=== PATIENT | female | born 1940 | race Caucasian/White ===

== ENCOUNTER 2017-07-16 09:14 | Observation (INO) | payer MEDICARE, BC ==
[2017-07-16] MEDS ORDERED: Ondansetron 4 MG/2 ML SDV IVPUSH ONE ×2 (09:55→12:01)
[2017-07-16] MEDS ORDERED: Sodium Chloride 0.9% 1,000 ML IV SCH ×2 (10:00→11:00)
[2017-07-16] MEDS ORDERED: HYDROmorphone 0.5 MG/0.5 ML Syringe IVPUSH ONE ×2 (10:02→10:26)
--- NOTE | 2017-07-16 10:04 | EDM.PDOC ---
ED HPI GENERAL MEDICAL PROBLEM - General Chief Complaint: Gastrointestinal Problem Stated Complaint: NAUSEA Time Seen by Provider: 07/16/17 09:58 Source of Information: Reports: Patient History Limitations: Reports: No Limitations - History of Present Illness INITIAL COMMENTS - FREE TEXT/NARRATIVE: pt arrived with a history of being ill since monday. She has pain in her upper abdoman. pt did have urinary frequncy since last evening. She has not had a fever. Pt has been having very severe pain durng the nite and now. Onset: Gradual, Other ( started Monday nite. ) Duration: Day(s):, Getting Worse Location: Reports: Abdomen Associated Symptoms: Reports: Loss of Appetite, Nausea/Vomiting, Other ( severe abdomanal pain. ) Abdominal Pain Score (Numeric/FACES): 9 - Related Data Allergies Allergy/AdvReac Type Severity Reaction Status Date / Time No Known Allergies Allergy Verified 07/16/17 09:42 Home Meds: Home Meds Aspirin 81 mg PO ONETIME 05/22/13 [History] Calcium Carbonate/Vitamin D3 [Os-Eduardo 500+D Chewable] 1 tab PO DAILY 05/22/13 [ History] Gluc [place]/Msm/Magnesium/Vit C [Glucosamine Complex-MSM] 1 tab PO DAILY 05/22/13 [ History] Lisinopril 10 mg PO DAILY 05/22/13 [History] Multivitamin/Iron/Folic Acid [Centrum Complete Multivit] 1 tab PO DAILY [History] Simvastatin [Zocor] 40 mg PO BEDTIME 05/22/13 [History] Metoprolol Succinate 50 mg PO DAILY 05/20/15 [History] Past Medical History Cardiovascular History: Reports: High Cholesterol, Hypertension [employer] History: Reports: , Spontaneous Musculoskeletal History: Reports: Arthritis Endocrine/Metabolic History: Reports: Diabetes, Type II Other Endocrine/Metabolic History: diet control - Infectious Disease History Infectious Disease History: Reports: Chicken Pox, Measles - Past Surgical History Oncologic Surgical History: Reports: Biopsy of Breast Social & Family History - Tobacco Use Smoking Status *Q: Former Smoker Used Tobacco, but Quit: Yes Month Tobacco Last Used: 30 years Second Hand Smoke Exposure: No - Caffeine Use Caffeine Use: Reports: Coffee - Alcohol Use Days Per Week of Alcohol Use: 1 Number of Drinks Per Day: 2 Total Drinks Per Week: 2 - Recreational Drug Use Recreational Drug Use: No ED ROS GENERAL - Review of Systems Review Of Systems: See Below Constitutional: Reports: Decreased Appetite HEENT: Reports: No Symptoms Respiratory: Reports: No Symptoms Cardiovascular: Reports: No Symptoms Endocrine: Reports: No Symptoms GI/Abdominal: Reports: Abdominal Pain, Decreased Appetite, Nausea, Vomiting : Reports: No Symptoms ED EXAM, GI/ABD - Physical Exam Exam: See Below Text/Narrative:: Pt arrived with acute abdomanal pain in the epigastric area. She has been very uncomfortable for most of the nite and she was rating her pain at a 10 on arrival. Exam Limited By: No Limitations General Appearance: Alert, Anxious, Severe Distress Ears: Normal TMs Nose: Normal Inspection Throat/Mouth: Normal Inspection Head: Atraumatic Neck: Normal Inspection Respiratory/Chest: No Respiratory Distress Cardiovascular: Regular Rate, Rhythm GI/Abdominal Exam: Tender, Other ( Pt had tenderness in the epigastric and the rt upper abdoman. She did not have back pain. She wa still wretching and doing alot of vomiting. ) (Female) Exam: Deferred Rectal (Female) Exam: Deferred, Other ( She states she had a stool that did look orange. ) Back Exam: Normal Inspection Extremities: Normal Inspection Neurological: Alert, Oriented, Normal Cognition Course - Vital Signs Last Recorded V/S: Last Vital Signs Temp 36.0 C 07/16/17 09:40 Pulse 75 07/16/17 12:17 Resp 16 07/16/17 12:17 BP 149/56 H 07/16/17 12:17 Pulse Ox 93 L 07/16/17 12:17 - Orders/Labs/Meds Orders: Active Orders 24 hr Category Date Time Status EKG Documentation Completion [RC] ASDIRECTED Care 07/16/17 10:27 Active Abdomen Ltd [US] Stat Exams 07/16/17 10:26 Taken Abdomen Pelvis w Cont [CT] Stat Exams 07/16/17 11:31 Taken Sodium Chloride 0.9% [Normal Saline] 1,000 ml Med 07/16/17 10:00 Active IV ASDIRECTED Sodium Chloride 0.9% [Normal Saline] 1,000 ml Med 07/16/17 11:00 Active IV ASDIRECTED EKG 12 Lead [EK] Routine Ther 07/16/17 10:27 Ordered Medication Orders Sodium Chloride (Normal Saline) 1,000 mls @ 999 mls/hr IV ASDIRECTED CARMEN Last Admin: 07/16/17 10:08 Dose: 999 mls/hr Sodium Chloride (Normal Saline) 1,000 mls @ 999 mls/hr IV ASDIRECTED [facility] Last Admin: 07/16/17 12:14 Dose: 999 mls/hr Labs: Laboratory Tests 07/16/17 07/16/17 07/16/17 Range/Units 10:08 10:08 10:08 WBC 7.6 (4.5-11.0) K/uL RBC 5.35 (3.30-5.50) M/uL Hgb 16.8 H (12.0-15.0) g/dL Hct 49.2 H (36.0-48.0) % MCV 92 (80-98) fL MCH 31 (27-31) pg MCHC 34 (32-36) % Plt Count 253 (150-400) K/uL Neut % (Auto) 65 (36-66) % Lymph % (Auto) 22 L (24-44) % [place] % (Auto) 12 H (2-6) % Eos % (Auto) 1 L (2-4) % Baso % (Auto) 0 (0-1) % Sodium 139 L (140-148) mmol/L Potassium 4.0 (3.6-5.2) mmol/L Chloride 101 (100-108) mmol/L Carbon Dioxide 25 (21-32) mmol/L Anion Gap 17.0 H (5.0-14.0) mmol/L BUN 14 (7-18) mg/dL Creatinine 0.9 (0.6-1.0) mg/dL Est Cr Clr Drug Dosing 47.85 mL/min Estimated GFR (MDRD) > 60 (>60) Glucose 130 H (74-106) mg/dL Calcium 9.6 (8.5-10.1) mg/dL Total Bilirubin 1.1 H D (0.2-1.0) mg/dL AST 33 (15-37) U/L ALT 30 (12-78) U/L Alkaline Phosphatase 68 (46-116) U/L Total Protein 7.8 (6.4-8.2) g/dL Albumin 4.0 (3.4-5.0) g/dL Globulin 3.8 H (2.3-3.5) g/dL Albumin/Globulin Ratio 1.1 L (1.2-2.2) Amylase (25-115) U/L Lipase 306 (73-393) U/L 07/16/17 Range/Units 10:08 WBC (4.5-11.0) K/uL RBC (3.30-5.50) M/uL Hgb (12.0-15.0) g/dL Hct (36.0-48.0) % MCV (80-98) fL MCH (27-31) pg MCHC (32-36) % Plt Count (150-400) K/uL Neut % (Auto) (36-66) % Lymph % (Auto) (24-44) % [place] % (Auto) (2-6) % Eos % (Auto) (2-4) % Baso % (Auto) (0-1) % Sodium (140-148) mmol/L Potassium (3.6-5.2) mmol/L Chloride (100-108) mmol/L Carbon Dioxide (21-32) mmol/L Anion Gap (5.0-14.0) mmol/L BUN (7-18) mg/dL Creatinine (0.6-1.0) mg/dL Est Cr Clr Drug Dosing mL/min Estimated GFR (MDRD) (>60) Glucose (74-106) mg/dL Calcium (8.5-10.1) mg/dL Total Bilirubin (0.2-1.0) mg/dL AST (15-37) U/L ALT (12-78) U/L Alkaline Phosphatase (46-116) U/L Total Protein (6.4-8.2) g/dL Albumin (3.4-5.0) g/dL Globulin (2.3-3.5) g/dL Albumin/Globulin Ratio (1.2-2.2) Amylase 54 (25-115) U/L Lipase (73-393) U/L Meds: Medications Generic Name Dose Route Start Last Admin Trade Name Freq PRN Reason Stop Dose Admin Sodium Chloride 1,000 mls @ 999 mls/hr 07/16/17 10:00 07/16/17 10:08 Normal Saline IV 999 mls/hr ASDIRECTED CARMEN Administration Sodium Chloride 1,000 mls @ 999 mls/hr 07/16/17 11:00 07/16/17 12:14 Normal Saline IV 999 mls/hr ASDIRECTED CARMEN Administration Discontinued Medications Generic Name Dose Route Start Last Admin Trade Name Emiliano PRN Reason Stop Dose Admin Hydromorphone HCl 0.5 mg 07/16/17 10:02 07/16/17 10:13 Dilaudid IVPUSH 07/16/17 10:03 0.5 mg ONETIME ONE Administration Hydromorphone HCl 0.5 mg 07/16/17 10:26 07/16/17 10:32 Dilaudid IVPUSH 07/16/17 10:27 0.5 mg ONETIME ONE Administration Sodium Chloride 74 mls @ 3.4 mls/sec 07/16/17 11:41 07/16/17 11:52 Normal Saline IV 07/16/17 11:42 3.4 mls/sec ASDIRECTED STA Administration Iopamidol 100 ml 07/16/17 11:41 07/16/17 11:52 Isovue-300 (61%) IV 07/16/17 11:42 100 ml . DIRECTED STA Administration Ondansetron HCl 4 mg 07/16/17 09:55 07/16/17 10:09 Zofran IVPUSH 07/16/17 09:56 4 mg ONETIME ONE Administration Ondansetron HCl 4 mg 07/16/17 12:01 07/16/17 12:15 Zofran IVPUSH 07/16/17 12:02 4 mg ONETIME ONE Administration - Re-Assessments/Exams Free Text/Narrative Re-Assessment/Exam: 07/16/17 13:39 pt arrived with severe abdomanal pain. She was wretching and vomiting alot. She was given several doses of dilaudid and zoforan. She is feeling better at this time. 07/16/17 13:40 pt has normal labs. Her us did not show stones or gb thickening. Her cat scan of the abdoman was neg for acute findings. Departure - Departure Time of Disposition: 13:41 Disposition: Admitted As Inpatient 67 Condition: Fair Clinical Impression: Abdominal pain, Gastric irritation - Discharge Information Referrals: Kayla Suh PA [Primary Care Provider] - Forms: ED Department Discharge Care Plan Goals: admit to Dr Wynn. - My Orders Last 24 Hours: My Active Orders 07/16/17 10:00 Sodium Chloride 0.9% [Normal Saline] 1,000 ml IV ASDIRECTED 07/16/17 10:26 Abdomen Ltd [US] Stat 07/16/17 10:27 EKG Documentation Completion [RC] ASDIRECTED EKG 12 Lead [EK] Routine 07/16/17 11:00 Sodium Chloride 0.9% [Normal Saline] 1,000 ml IV ASDIRECTED 07/16/17 11:31 Abdomen Pelvis w Cont [CT] Stat - Assessment/Plan Last 24 Hours: My Active Orders 07/16/17 10:00 Sodium Chloride 0.9% [Normal Saline] 1,000 ml IV ASDIRECTED 07/16/17 10:26 Abdomen Ltd [US] Stat 07/16/17 10:27 EKG Documentation Completion [RC] ASDIRECTED EKG 12 Lead [EK] Routine 07/16/17 11:00 Sodium Chloride 0.9% [Normal Saline] 1,000 ml IV ASDIRECTED 07/16/17 11:31 Abdomen Pelvis w Cont [CT] Stat
[2017-07-16] MEDS ORDERED: Iopamidol 612 MG/ML 100 ML Bottle IV STA (11:41)
[2017-07-16] MEDS ORDERED: Pantoprazole 40 MG Vial IVPUSH ONE (13:47)
--- NOTE | 2017-07-16 15:04 | PCM.HP ---
H&P History of Present Illness - General Date of Service: 07/16/17 Admit Problem/Dx: Admission Diagnosis/Problem Admission Diagnosis/Problem Epigastric pain Source of Information: Patient, Family, Provider History Limitations: Reports: No Limitations - History of Present Illness Initial Comments - Free Text/Narative: Ligia presents to the emergency room today with 24 hours of nausea with vomiting and severe epigastric pain. She reports some nausea and dry heaves about 36 hours before presentation. These resolved and she felt well yesterday morning. After returning home from work around noon she developed nausea followed by vomiting. She also had severe achy epigastric abdominal pain that started around this time. She tried to take some ibuprofen but vomited it up before it had a chance to absorb and work. No obvious triggers to make the pain worse it just seems to come and go on its own. She is not aware of any fevers. She does not have an appetite. No diarrhea. No obvious sick contacts. She does not feel short of breath. No change in bladder habits. She does note that she's lost a few pounds over the past few months and has not been trying to do so. No night sweats or significant fatigue. Workup in the emergency room has been reassuring with fairly normal lab work and a normal CT of the abdomen and pelvis as well as a normal right upper quadrant ultrasound. Given the severe nature of her pain on arrival admission for observation was recommended. Abdominal Pain Score (Numeric/FACES): 9 - Related Data Allergies/Adverse Reactions: Allergies Allergy/AdvReac Type Severity Reaction Status Date / Time No Known Allergies Allergy Verified 07/16/17 16:26 Home Medications: Home Meds Aspirin 81 mg PO ONETIME 05/22/13 [History] Calcium Carbonate/Vitamin D3 [Os-Eduardo 500+D Chewable] 1 tab PO DAILY 05/22/13 [ History] Gluc [place]/Msm/Magnesium/Vit C [Glucosamine Complex-MSM] 1 tab PO DAILY 05/22/13 [ History] Lisinopril 10 mg PO DAILY 05/22/13 [History] Multivitamin/Iron/Folic Acid [Centrum Complete Multivit] 1 tab PO DAILY [History] Simvastatin [Zocor] 40 mg PO BEDTIME 05/22/13 [History] Metoprolol Succinate 50 mg PO DAILY 05/20/15 [History] Past Medical History Cardiovascular History: Reports: High Cholesterol, Hypertension [employer]ING History: Reports: , Spontaneous Musculoskeletal History: Reports: Arthritis Endocrine/Metabolic History: Reports: Diabetes, Type II Other Endocrine/Metabolic History: diet control - Infectious Disease History Infectious Disease History: Reports: Chicken Pox, Measles - Past Surgical History Oncologic Surgical History: Reports: Biopsy of Breast Social & Family History - Family History Oncologic: Reports: Other (See Below) (father with gastric cancer) - Tobacco Use Smoking Status *Q: Former Smoker Used Tobacco, but Quit: Yes Month Tobacco Last Used: 30 years Second Hand Smoke Exposure: No - Caffeine Use Caffeine Use: Reports: Coffee - Alcohol Use Days Per Week of Alcohol Use: 1 Number of Drinks Per Day: 2 Total Drinks Per Week: 2 - Recreational Drug Use Recreational Drug Use: No H&P Review of Systems - Review of Systems: Review Of Systems: See Below Free Text/Narrative: A complete 12 point review of systems was obtained. Pertinent positives and negatives are noted in the history of present illness. All other systems were reviewed and were negative except as noted. Exam - Exam Exam: See Below - Vital Signs Vital Signs: Last Vital Signs Temp 36.0 C 07/16/17 09:40 Pulse 78 07/16/17 14:22 Resp 16 07/16/17 14:22 BP 169/85 H 07/16/17 14:22 Pulse Ox 93 L 07/16/17 14:22 Weight: 74.389 kg - Exam Quality Assessment: No: Supplemental Oxygen General: Alert, Oriented, Cooperative, Mild Distress HEENT: Conjunctiva Clear. No: Mucosa Moist & Interior (dry), Scleral Icterus Neck: Supple, Trachea Midline. No: Lymphadenopathy Lungs: Clear to Auscultation, Normal Respiratory Effort Cardiovascular: Regular Rate, Regular Rhythm GI/Abdominal Exam: Normal Bowel Sounds, Soft, No Distention, Tender (mild epigastric and suprapubic ) Back Exam: Full Range of Motion. No: Normal Inspection Extremities: No Pedal Edema. No: Increased Warmth Skin: Warm, Dry Neuro Extensive - Mental Status: Alert, Oriented x3, Nl Response to Commands Neuro Extensive - Motor, Sensory, Reflexes: CN II-XII Intact. No: Dysarthria, Abnormal Motor, Tremor Psychiatric: Alert, Normal Affect - Patient Data Lab Results Last 24 hrs: Laboratory Results - last 24 hr 07/16/17 07/16/17 07/16/17 Range/Units 10:08 10:08 10:08 WBC 7.6 (4.5-11.0) K/uL RBC 5.35 (3.30-5.50) M/uL Hgb 16.8 H (12.0-15.0) g/dL Hct 49.2 H (36.0-48.0) % MCV 92 (80-98) fL MCH 31 (27-31) pg MCHC 34 (32-36) % Plt Count 253 (150-400) K/uL Neut % (Auto) 65 (36-66) % Lymph % (Auto) 22 L (24-44) % [place] % (Auto) 12 H (2-6) % Eos % (Auto) 1 L (2-4) % Baso % (Auto) 0 (0-1) % Sodium 139 L (140-148) mmol/L Potassium 4.0 (3.6-5.2) mmol/L Chloride 101 (100-108) mmol/L Carbon Dioxide 25 (21-32) mmol/L Anion Gap 17.0 H (5.0-14.0) mmol/L BUN 14 (7-18) mg/dL Creatinine 0.9 (0.6-1.0) mg/dL Est Cr Clr Drug Dosing 47.85 mL/min Estimated GFR (MDRD) > 60 (>60) Glucose 130 H (74-106) mg/dL Calcium 9.6 (8.5-10.1) mg/dL Total Bilirubin 1.1 H D (0.2-1.0) mg/dL AST 33 (15-37) U/L ALT 30 (12-78) U/L Alkaline Phosphatase 68 (46-116) U/L Total Protein 7.8 (6.4-8.2) g/dL Albumin 4.0 (3.4-5.0) g/dL Globulin 3.8 H (2.3-3.5) g/dL Albumin/Globulin Ratio 1.1 L (1.2-2.2) Amylase (25-115) U/L Lipase 306 (73-393) U/L 07/16/17 Range/Units 10:08 WBC (4.5-11.0) K/uL RBC (3.30-5.50) M/uL Hgb (12.0-15.0) g/dL Hct (36.0-48.0) % MCV (80-98) fL MCH (27-31) pg MCHC (32-36) % Plt Count (150-400) K/uL Neut % (Auto) (36-66) % Lymph % (Auto) (24-44) % [place] % (Auto) (2-6) % Eos % (Auto) (2-4) % Baso % (Auto) (0-1) % Sodium (140-148) mmol/L Potassium (3.6-5.2) mmol/L Chloride (100-108) mmol/L Carbon Dioxide (21-32) mmol/L Anion Gap (5.0-14.0) mmol/L BUN (7-18) mg/dL Creatinine (0.6-1.0) mg/dL Est Cr Clr Drug Dosing mL/min Estimated GFR (MDRD) (>60) Glucose (74-106) mg/dL Calcium (8.5-10.1) mg/dL Total Bilirubin (0.2-1.0) mg/dL AST (15-37) U/L ALT (12-78) U/L Alkaline Phosphatase (46-116) U/L Total Protein (6.4-8.2) g/dL Albumin (3.4-5.0) g/dL Globulin (2.3-3.5) g/dL Albumin/Globulin Ratio (1.2-2.2) Amylase 54 (25-115) U/L Lipase (73-393) U/L Result Diagrams: 07/16/17 10:08 07/16/17 10:08 Imaging Impressions Last 24 hrs: CT abd/pelvis - images personally reviewed - no acute pathology, no perforation , no mass, no abscess, no obstruction RUQ US - no acute pathology *Q Meaningful Use (ADM) - VTE *Q VTE Criteria *Q: - VTE Risk Assess *Q Each Risk Factor Represents 1 Point: Minor Surgery Planned, Obesity ( BMI > 25 kg/m2) Total Score 1 Point Risk Factors: 2 Each Risk Factor Represents 2 Points: None Total Score 2 Point Risk Factors: 0 Each Risk Factor Represents 3 Points: Age 75 Years or Greater Total Score 3 Point Risk Factors: 3 Each Risk Factor Represents 5 Points: None Total Score 5 Point Risk Factors: 0 Venous Thromboembolism Risk Factor Score *Q: 5 - Stroke *Q Stroke Criteria *Q: - AMI *Q AMI Criteria *Q: - Problem List (1) Epigastric pain SNOMED Code(s): 26752624 ICD Code: R10.13 - EPIGASTRIC PAIN Status: Acute Current Visit: Yes (2) Vomiting SNOMED Code(s): 186308832 ICD Code: R11.10 - VOMITING, UNSPECIFIED Status: Acute Current Visit: Yes Qualifiers: Vomiting Intractability: non-intractable Nausea presence: with nausea (3) Weight loss, non-intentional SNOMED Code(s): 260929176 ICD Code: R63.4 - ABNORMAL WEIGHT LOSS Status: Acute Current Visit: Yes Problem List Initiated/Reviewed/Updated: Yes Orders Last 24hrs: Active Orders 24 hr Category Date Time Status Patient Status Manage Transfer [TRANSFER] Routine ADT 07/16/17 14:47 Ordered EKG Documentation Completion [RC] ASDIRECTED Care 07/16/17 10:27 Active Abdomen Ltd [US] Stat Exams 07/16/17 10:26 Taken Abdomen Pelvis w Cont [CT] Stat Exams 07/16/17 11:31 Taken Sodium Chloride 0.9% [Normal Saline] 1,000 ml Med 07/16/17 10:00 Active IV ASDIRECTED Sodium Chloride 0.9% [Normal Saline] 1,000 ml Med 07/16/17 11:00 Active IV ASDIRECTED Resuscitation Status Routine Resus Stat 07/16/17 14:48 Ordered EKG 12 Lead [EK] Routine Ther 07/16/17 10:27 Ordered Medication Orders Sodium Chloride (Normal Saline) 1,000 mls @ 999 mls/hr IV ASDIRECTED [facility] Last Admin: 07/16/17 10:08 Dose: 999 mls/hr Sodium Chloride (Normal Saline) 1,000 mls @ 999 mls/hr IV ASDIRECTED [facility] Last Admin: 07/16/17 12:14 Dose: 999 mls/hr Assessment/Plan Comment:: ASSESSMENT AND PLAN - Epigastric pain with nausea and vomiting - story sounds like a viral gastritis though the severity of the pain seems out of character for a simple viral enteritis. She has not had any fevers and has not had any diarrhea. There is a report of unintentional weight loss and some early satiety which raises concern for gastric pathology. Currently pain-free and has not vomited after treatment in the emergency room. -Gentle IV fluids -Control of pain and nausea -EGD in the morning with Dr. Lee Essential hypertension - Hold blood pressure medications today, restart tomorrow morning Maintenance issues - - DVT prophylaxis - mechanical - GI prophylaxis - PPI - Nutrition - clear liquids this evening, nothing by mouth after midnight - Buck catheter - not indicated CODE STATUS - full code Admission justification - patient will be referred observation status for symptom management and additional workup Disposition - anticipate discharge to home tomorrow Primary care physician - Kayla Wynn M.D.
[2017-07-16] MEDS ORDERED: Ondansetron 4 MG Tab.DIS PO PRN (16:24)
[2017-07-16] MEDS ORDERED: Ondansetron 4 MG/2 ML SDV IV PRN (16:24)
[2017-07-16] MEDS ORDERED: HYDROmorphone 0.5 MG/0.5 ML Syringe IVPUSH PRN (16:24)
[2017-07-16] MEDS ORDERED: Ibuprofen 600 MG Tab PO PRN (16:24)
[2017-07-16] MEDS ORDERED: Aspirin 81 MG Tab.Chew PO ONE (17:15)
[2017-07-16] MEDS: Sodium Chloride 0.9% 1,000 ML IV SCH (17:17)
[2017-07-16] MEDS ORDERED: Aspirin 81 MG Tab.EC PO ONE (18:45)
[2017-07-17] MEDS: Sodium Chloride 0.9% 1,000 ML IV SCH ×2 (03:15→11:29)
[2017-07-17] MEDS ORDERED: Pantoprazole 40 MG Tab.CR PO SCH (07:30)
[2017-07-17] MEDS ORDERED: FLU Vacc TS 2017-18 (65yr UP)/PF 180 MCG/0.5 ML Syringe IM ONE ×2 (09:00→10:00)
[2017-07-17] MEDS ORDERED: Propofol 200 MG/20 ML SDV ONE (09:44)
[2017-07-17] MEDS: Acetaminophen 325 MG Tab PO PRN (13:18)
[2017-07-17] MEDS ORDERED: LORazepam 2 MG/ML MDV IVPUSH PRN (13:54)
[2017-07-17] MEDS ORDERED: Pantoprazole 40 MG Vial IVPUSH SCH (14:00)
[2017-07-17] MEDS ORDERED: Sodium Chloride 0.9% 1,000 ML IV SCH (14:30)
--- NOTE | 2017-07-17 14:30 | PCM.PN ---
- General Info Date of Service: 07/17/17 Subjective Update: Ms. Nasir Royal is a 77-year-old woman who was admitted through the emergency department with epigastric pain nausea and vomiting 2 to three-day duration. She had felt better after hydration and anti-medic therapy. EGD was performed today by Dr. Lee and shows evidence of a gastric prepyloric ulcer. - Review of Systems General: Denies: Fever, Chills Pulmonary: Reports: No Symptoms Cardiovascular: Reports: No Symptoms Gastrointestinal: Reports: Abdominal Pain, Nausea, Vomiting. Denies: Decreased Appetite, Diarrhea, Difficulty Swallowing, Hematochezia, Melena - Patient Data Vitals - Most Recent: Last Vital Signs Temp 96.5 F 07/17/17 13:00 Pulse 77 07/17/17 13:00 Resp 16 07/17/17 13:00 BP 169/42 H 07/17/17 13:00 Pulse Ox 95 07/17/17 13:00 Weight - Most Recent: 165 lb 6.006 oz I&O - Last 24 Hours: Intake & Output 07/16/17 07/17/17 07/17/17 22:59 06:59 14:59 Intake Total 480 1160 315 Output Total 400 600 200 Balance 80 560 115 Lab Results Last 24 Hours: Laboratory Results - last 24 hr 07/17/17 07/17/17 Range/Units 06:00 06:00 WBC 6.6 (4.5-11.0) K/uL RBC 4.39 (3.30-5.50) M/uL Hgb 13.6 D (12.0-15.0) g/dL Hct 41.7 (36.0-48.0) % MCV 95 (80-98) fL MCH 31 (27-31) pg MCHC 33 (32-36) % Plt Count 186 (150-400) K/uL Sodium 144 (140-148) mmol/L Potassium 3.9 (3.6-5.2) mmol/L Chloride 109 H (100-108) mmol/L Carbon Dioxide 27 (21-32) mmol/L Anion Gap 11.9 (5.0-14.0) mmol/L BUN 9 (7-18) mg/dL Creatinine 0.8 (0.6-1.0) mg/dL Est Cr Clr Drug Dosing 53.83 mL/min Estimated GFR (MDRD) > 60 (>60) Glucose 95 (74-106) mg/dL Calcium 8.6 (8.5-10.1) mg/dL Med Orders - Current: Current Medications Acetaminophen (Tylenol) 650 mg PO Q4H PRN PRN Reason: Pain (Mild 1-3)/fever Last Admin: 07/17/17 13:18 Dose: 650 mg Hydromorphone HCl (Dilaudid) 0.5 - 1 mg IVPUSH Q2H PRN PRN Reason: Pain (severe 7-10) Last Admin: 07/16/17 19:24 Dose: 0.5 mg Lorazepam (Ativan) 0.5 mg IVPUSH Q2H PRN PRN Reason: Nausea Non-Formulary Medication (Lisinopril [Lisinopril]) 10 mg PO DAILY CARMEN Non-Formulary Medication (Metoprolol Succinate [Metoprolol Succinate]) 50 mg PO DAILY [facility] Ondansetron HCl (Zofran Odt) 4 mg PO Q6H PRN PRN Reason: Nausea able to take PO Ondansetron HCl (Zofran) 4 mg IV Q6H PRN PRN Reason: Nausea/Vomiting Last Admin: 07/16/17 17:07 Dose: 4 mg Pantoprazole Sodium (Protonix Iv) 40 mg IVPUSH Q12H [facility] Discontinued Medications Aspirin (Aspirin) 81 mg PO ONETIME ONE Stop: 07/16/17 17:16 Last Admin: 07/16/17 18:42 Dose: Not Given Aspirin (Halfprin) 81 mg PO ONETIME ONE Stop: 07/16/17 18:46 Last Admin: 07/16/17 19:24 Dose: 81 mg Hydromorphone HCl (Dilaudid) 0.5 mg IVPUSH ONETIME ONE Stop: 07/16/17 10:03 Last Admin: 07/16/17 10:13 Dose: 0.5 mg Hydromorphone HCl (Dilaudid) 0.5 mg IVPUSH ONETIME ONE Stop: 07/16/17 10:27 Last Admin: 07/16/17 10:32 Dose: 0.5 mg Sodium Chloride (Normal Saline) 1,000 mls @ 999 mls/hr IV ASDIRECTED [facility] Last Admin: 07/16/17 10:08 Dose: 999 mls/hr Sodium Chloride (Normal Saline) 1,000 mls @ 999 mls/hr IV ASDIRECTED CARMEN Last Admin: 07/16/17 12:14 Dose: 999 mls/hr Sodium Chloride (Normal Saline) 74 mls @ 3.4 mls/sec IV ASDIRECTED STA Stop: 07/16/17 11:42 Last Admin: 07/16/17 11:52 Dose: 3.4 mls/sec Sodium Chloride (Normal Saline) 1,000 mls @ 100 mls/hr IV ASDIRECTED [facility] Last Admin: 07/17/17 11:29 Dose: 100 mls/hr Ibuprofen (Motrin) 600 mg PO Q6H PRN PRN Reason: Pain/Fever Influenza Virus Vaccine (Pharmacy To Dose - Influenza Vaccine) 1 each IM ONETIME ONE Stop: 07/17/17 10:01 Influenza Virus Vaccine (Fluzone High-Dose 2016-) 180 mcg IM .ONCE ONE Stop: 07/17/17 09:01 Last Admin: 07/17/17 08:40 Dose: 180 mcg Iopamidol (Isovue-300 (61%)) 100 ml IV . DIRECTED STA Stop: 07/16/17 11:42 Last Admin: 07/16/17 11:52 Dose: 100 ml Ondansetron HCl (Zofran) 4 mg IVPUSH ONETIME ONE Stop: 07/16/17 09:56 Last Admin: 07/16/17 10:09 Dose: 4 mg Ondansetron HCl (Zofran) 4 mg IVPUSH ONETIME ONE Stop: 07/16/17 12:02 Last Admin: 07/16/17 12:15 Dose: 4 mg Pantoprazole Sodium (Protonix Iv) 40 mg IVPUSH ONETIME ONE Stop: 07/16/17 13:48 Last Admin: 07/16/17 15:33 Dose: 40 mg Pantoprazole Sodium (Protonix) 40 mg PO ACBREAKFAST [facility] Last Admin: 07/17/17 11:45 Dose: 40 mg Propofol (Diprivan 20 Ml) Confirm Administered Dose 200 mg .ROUTE .STK-MED ONE Stop: 07/17/17 09:45 - Exam General: Alert, Oriented, Cooperative, Mild Distress Lungs: Clear to Auscultation, Normal Respiratory Effort Cardiovascular: Regular Rate, Regular Rhythm, No Murmurs GI/Abdominal Exam: Soft, Non-Tender, No Organomegaly, No Distention Extremities: Non-Tender, No Pedal Edema Skin: Warm, Dry, Intact - Problem List Review Problem List Initiated/Reviewed/Updated: Yes - My Orders Last 24 Hours: My Active Orders 07/17/17 13:54 LORazepam [Ativan] 0.5 mg IVPUSH Q2H PRN 07/17/17 14:00 Pantoprazole [ProTONIX IV] 40 mg IVPUSH Q12H 07/17/17 14:30 Sodium Chloride 0.9% @ 50 MLS/HR(1000ml) Sodium Chloride 0.9% [Normal Saline] 1 ,000 ml IV ASDIRECTED - Plan Plan:: ASSESSMENT AND PLAN - Gastric ulcer with nausea and vomiting- symptoms have improved but not totally resolved -Decrease IV fluids to 50 mL per hour -[place] diet -Protonix 40 mg IV every 12 hours -Control of pain and nausea -Follow-up EGD with Dr. Lee in 6 weeks -CLOtest pending Essential hypertension - Hold blood pressure medications today, restart tomorrow morning Maintenance issues - - DVT prophylaxis - mechanical - GI prophylaxis - PPI - Nutrition - clear liquids this evening, nothing by mouth after midnight - Buck catheter - not indicated CODE STATUS - full code Admission justification - patient will be referred observation status for symptom management and additional workup Disposition - anticipate discharge to home tomorrow Primary care physician - Kayla ARCHULETA
[2017-07-17] MEDS: LISINOPRIL 10 MG PO SCH (15:40)
[2017-07-17] MEDS: Metoprolol Tartrate 50 MG Tab*POM PO SCH (15:42)
[2017-07-17] MEDS: Pantoprazole 40 MG Vial IVPUSH SCH (22:30)
[2017-07-18] MEDS: Acetaminophen 325 MG Tab PO PRN (05:25)
[2017-07-18 07:28] VITALS: BP 136/51
--- NOTE | 2017-07-18 08:02 | OR ---
DATE OF PROCEDURE: 07/17/2017 PREOPERATIVE DIAGNOSIS: Upper abdominal pain. POSTOPERATIVE DIAGNOSES: 1. Upper abdominal pain. 2. Large penetrating pre-pyloric ulcer. PROCEDURE PERFORMED: Esophagogastroduodenoscopy with antral biopsies for CLOtest and for pathology to look for Helicobacter pylori. SURGEON: Alireza Lee MD. ANESTHESIA: IV anesthesia with monitored anesthesia care. INDICATION: This 77-year-old white female is in the hospital with upper abdominal pain. Studies to date have been negative, and a request was made for upper endoscopy. I counseled her for this including risks and alternatives, and she gave her informed consent to proceed. DESCRIPTION OF PROCEDURE: The patient was placed in the left lateral decubitus position. IV anesthesia was administered by the Anesthesia Service. Time-out was held. The flexible video Olympus upper endoscope was passed through her mouth, down her esophagus, and into her stomach. The scope was easily passed through the pylorus into the duodenum , reaching its third portion. The scope was slowly withdrawn, examining the mucosa throughout. The duodenal mucosa appeared unremarkable. The scope was brought up through the pylorus. There was a large pre-pyloric penetrating ulcer. There was no obvious bleeding associated with it. There were also a few small superficial pre-pyloric ulcers. We obtained antral biopsies for CLOtest and sent tissue for pathology to look for Helicobacter pylori, including biopsy of the ulcer. The scope was retroflexed. The proximal stomach appeared unremarkable. The scope was straightened and brought up to the GE junction. This appeared unremarkable. The scope was then brought up through the unremarkable appearing esophagus and was removed. She tolerated the procedure well. Alireza Lee MD /[id number] MTDD
[2017-07-18] MEDS: Metoprolol Tartrate 50 MG Tab*POM PO SCH (08:55)
[2017-07-18] MEDS: LISINOPRIL 10 MG PO SCH (08:55)
[2017-07-18] MEDS: Pantoprazole 40 MG Vial IVPUSH SCH (09:51)
--- NOTE | 2017-07-18 11:42 | PCM.DCSUM1 ---
Discharge Summary - Hospital Course Brief History: Ms. Nasir Royal is a 77-year-old woman who was admitted through the emergency department with a 2 to three-day history of severe epigastric abdominal pain associated with nausea and vomiting. - Discharge Data Discharge Date: 07/18/17 Discharge Disposition: Home, Self-Care 01 Condition: Fair - Discharge Diagnosis/Problem(s) (1) Gastric ulcer SNOMED Code(s): 155705093 ICD Code: K25.9 - GASTRIC ULCER, UNSP ACUTE OR CHRONIC, W/O HEMOR OR PERF Status: Acute Current Visit: Yes (2) Abdominal pain SNOMED Code(s): 06991396 ICD Code: R10.9 - UNSPECIFIED ABDOMINAL PAIN Status: Acute Current Visit : Yes (3) Vomiting SNOMED Code(s): 442404738 ICD Code: R11.10 - VOMITING, UNSPECIFIED Status: Acute Current Visit: Yes Qualifiers: Vomiting Intractability: non-intractable Nausea presence: with nausea (4) Type 2 diabetes mellitus SNOMED Code(s): 52372226 ICD Code: E11.9 - TYPE 2 DIABETES MELLITUS WITHOUT COMPLICATIONS Status: Chronic Current Visit: No (5) Essential hypertension SNOMED Code(s): 46187011 ICD Code: I10 - ESSENTIAL (PRIMARY) HYPERTENSION Status: Chronic Current Visit: No - Patient Summary/Data Consults: Consultations 07/16/17 16:24 Consult to Physician [CONS] Routine Consulting Provider: Alireza Lee Call Completed to Consulting Physician: Yes Reason for Consult: epigastric pain, consider EGD Person Notified: BDB Date Notified: 07/16/17 Special Instructions: EGD in the morning Hospital Course: Ms. Nasir Royal is a 77-year-old woman who developed symptoms of nausea, vomiting, and epigastric abdominal pain at home prior to presenting to the emergency department. While in the emergency department had laboratory studies that were essentially unremarkable, abdominal ultrasound that showed no significant abnormalities in CT scan of the abdomen and pelvis that also showed no obvious abnormalities. She was admitted to the hospital given pain medication as well as antiemetic therapy and IV fluids for hydration. On the morning after admission she was seen and evaluated by Dr. Lee and an upper GI endoscopy was performed that did show evidence of a gastric prepyloric ulcer that was assumed to be the cause of her symptoms. After the procedure she had ongoing difficulty with nausea vomiting and was kept in the hospital for an additional night. By the morning of discharge was feeling significantly improved and had no further symptoms of nausea vomiting during the night and her epigastric pain had essentially resolved. She was treated with Protonix during the hospitalization will be converted to oral Protonix twice daily at the time of discharge she will take this dose for 2 weeks and then switch to once daily thereafter. At the time of discharge studies for Helicobacter including a CLOtest as well as biopsies are pending. Follow-up appointment for repeat upper GI endoscopy to assure healing of the gastric ulcer will be scheduled with Dr. Lee in 6 weeks. She is been in the instructed on a bland ulcer diet and will remain on soft foods over the next week, activity will be as tolerated. There is already a follow-up appointment scheduled with her primary care provider in one week. - Patient Instructions Diet: GI Soft/Low Residue/Low Fiber Diet, Other: [place] ulcer diet Activity: As Tolerated Other/Special Instructions: Please schedule a follow-up EGD with Dr. Lee in 6 weeks. Patient already has appointment to see her primary care provider in one week. - Discharge Plan Prescriptions/Med Rec: Pantoprazole Sodium [Protonix] 40 mg PO BID #30 tablet. Home Medications: Home Meds Aspirin 81 mg PO ONETIME 05/22/13 [History] Calcium Carbonate/Vitamin D3 [Os-Eduardo 500+D Chewable] 1 tab PO DAILY 05/22/13 [ History] Gluc [place]/Msm/Magnesium/Vit C [Glucosamine Complex-MSM] 1 tab PO DAILY 05/22/13 [ History] Lisinopril 10 mg PO DAILY 05/22/13 [History] Multivitamin/Iron/Folic Acid [Centrum Complete Multivit] 1 tab PO DAILY [History] Simvastatin [Zocor] 40 mg PO BEDTIME 05/22/13 [History] Metoprolol Tartrate 50 mg DAILY 07/17/17 [History] Pantoprazole Sodium [Protonix] 40 mg PO BID #30 tablet. 07/18/17 [Rx] Referrals: Kayla Suh PA [Primary Care Provider] - - Patient Data Vitals - Most Recent: Last Vital Signs Temp 97.3 F 07/18/17 07:00 Pulse 63 07/18/17 08:55 Resp 16 07/18/17 07:00 BP 136/51 L 07/18/17 08:55 Pulse Ox 94 L 07/18/17 07:00 Weight - Most Recent: 165 lb 6.006 oz I&O - Last 24 hours: Intake & Output 07/17/17 07/18/17 07/18/17 22:59 06:59 14:59 Intake Total 1100 1200 Output Total 1200 900 Balance -100 300 PASTORA Results - Last 24 hrs: Microbiology 07/17/17 11:05 CLOtest - Final Stomach NEGATIVE CLOTEST Med Orders - Current: Current Medications Discontinued Medications Acetaminophen (Tylenol) 650 mg PO Q4H PRN PRN Reason: Pain (Mild 1-3)/fever Last Admin: 07/18/17 05:25 Dose: 650 mg Aspirin (Aspirin) 81 mg PO ONETIME ONE Stop: 07/16/17 17:16 Last Admin: 07/16/17 18:42 Dose: Not Given Aspirin (Halfprin) 81 mg PO ONETIME ONE Stop: 07/16/17 18:46 Last Admin: 07/16/17 19:24 Dose: 81 mg Hydromorphone HCl (Dilaudid) 0.5 mg IVPUSH ONETIME ONE Stop: 07/16/17 10:03 Last Admin: 07/16/17 10:13 Dose: 0.5 mg Hydromorphone HCl (Dilaudid) 0.5 mg IVPUSH ONETIME ONE Stop: 07/16/17 10:27 Last Admin: 07/16/17 10:32 Dose: 0.5 mg Hydromorphone HCl (Dilaudid) 0.5 - 1 mg IVPUSH Q2H PRN PRN Reason: Pain (severe 7-10) Last Admin: 07/16/17 19:24 Dose: 0.5 mg Sodium Chloride (Normal Saline) 1,000 mls @ 999 mls/hr IV ASDIRECTED [facility] Last Admin: 07/16/17 10:08 Dose: 999 mls/hr Sodium Chloride (Normal Saline) 1,000 mls @ 999 mls/hr IV ASDIRECTED [facility] Last Admin: 07/16/17 12:14 Dose: 999 mls/hr Sodium Chloride (Normal Saline) 74 mls @ 3.4 mls/sec IV ASDIRECTED STA Stop: 07/16/17 11:42 Last Admin: 07/16/17 11:52 Dose: 3.4 mls/sec Sodium Chloride (Normal Saline) 1,000 mls @ 100 mls/hr IV ASDIRECTED [facility] Last Admin: 07/17/17 11:29 Dose: 100 mls/hr Sodium Chloride (Normal Saline) 1,000 mls @ 50 mls/hr IV ASDIRECTED [facility] Last Admin: 07/17/17 22:37 Dose: 50 mls/hr Ibuprofen (Motrin) 600 mg PO Q6H PRN PRN Reason: Pain/Fever Influenza Virus Vaccine (Pharmacy To Dose - Influenza Vaccine) 1 each IM ONETIME ONE Stop: 07/17/17 10:01 Influenza Virus Vaccine (Fluzone High-Dose ) 180 mcg IM .ONCE ONE Stop: 07/17/17 09:01 Last Admin: 07/17/17 08:40 Dose: 180 mcg Iopamidol (Isovue-300 (61%)) 100 ml IV . DIRECTED STA Stop: 07/16/17 11:42 Last Admin: 07/16/17 11:52 Dose: 100 ml Lisinopril (Prinivil) 10 mg PO DAILY [facility] Last Admin: 07/18/17 08:55 Dose: 10 mg Lorazepam (Ativan) 0.5 mg IVPUSH Q2H PRN PRN Reason: Nausea Metoprolol Tartrate (Lopressor) 50 mg PO DAILY [facility] Last Admin: 07/18/17 08:55 Dose: 50 mg Ondansetron HCl (Zofran) 4 mg IVPUSH ONETIME ONE Stop: 07/16/17 09:56 Last Admin: 07/16/17 10:09 Dose: 4 mg Ondansetron HCl (Zofran) 4 mg IVPUSH ONETIME ONE Stop: 07/16/17 12:02 Last Admin: 07/16/17 12:15 Dose: 4 mg Ondansetron HCl (Zofran Odt) 4 mg PO Q6H PRN PRN Reason: Nausea able to take PO Ondansetron HCl (Zofran) 4 mg IV Q6H PRN PRN Reason: Nausea/Vomiting Last Admin: 07/16/17 17:07 Dose: 4 mg Pantoprazole Sodium (Protonix Iv) 40 mg IVPUSH ONETIME ONE Stop: 07/16/17 13:48 Last Admin: 07/16/17 15:33 Dose: 40 mg Pantoprazole Sodium (Protonix) 40 mg PO ACBREAKFAST [facility] Last Admin: 07/17/17 11:45 Dose: 40 mg Pantoprazole Sodium (Protonix Iv) 40 mg IVPUSH Q12H [facility] Last Admin: 07/18/17 09:51 Dose: 40 mg Propofol (Diprivan 20 Ml) Confirm Administered Dose 200 mg .ROUTE .[facility]-MED ONE Stop: 07/17/17 09:45 *Q Meaningful Use (DIS) - VTE *Q VTE Criteria *Q: - Stroke *Q Stroke Criteria *Q: - AMI *Q AMI Criteria *Q:
== END 2017-07-18 11:27 | disposition home or self-care (01) ==
LOC: JP.ED 09:14 → JP.MS 14:47
PROVIDERS: ADMIT Internal Medicine; ATTEND Hospitalist
DX: K25.9 Gastric ulcer, unspecified as acute or chronic, without hemorrhage or perforation (principal); I10 Essential (primary) hypertension; E78.00 Pure hypercholesterolemia, unspecified; E11.9 Type 2 diabetes mellitus without complications; Z79.899 Other long term (current) drug therapy; Z79.82 Long term (current) use of aspirin; Z87.891 Personal history of nicotine dependence; Z23 Encounter for immunization
CPT/HCPCS: 36415; 43239; 74177; 76705; 80048; 80053; 82150; 83690; 85025; 85027; 87081; 88305; 88341; 88342; 93005; 93010; 96361; 96374; 96375; 96376; 99285; A9270; C9113; G0008; G0378; J1170; J2405; J2704; J7030; J7040; Q9967; 90662; 99217; 99219; 99225

== ENCOUNTER 2017-09-06 07:27 | Day surgery (SDC) | payer MEDICARE, BC ==
[~2017-09-06 07:27] MED LIST: Lactated Ringers 1,000 ML IV SCH
[2017-09-06] MEDS ORDERED: Lactated Ringers 1,000 ML IV SCH (07:30)
[2017-09-06] MEDS ORDERED: Propofol 200 MG/20 ML SDV ONE (09:14)
[2017-09-06 10:45] VITALS: BP 124/62
--- NOTE | 2017-09-07 09:18 | OR ---
DATE OF PROCEDURE: 09/06/2017 PREOPERATIVE DIAGNOSIS: History of large penetrating pre-pyloric ulcer. POSTOPERATIVE DIAGNOSIS: Persistent penetrating pre-pyloric ulcer. PROCEDURE PERFORMED: Esophagogastroduodenoscopy with biopsy of pre-pyloric ulcer for CLOtest and for pathology to look for Helicobacter pylori. SURGEON: Alireza Lee MD. ANESTHESIA: IV anesthesia with monitored anesthesia care. INDICATION: This 77-year-old white female underwent upper endoscopy on July 17, 2017 with finding of a large pre-pyloric penetrating ulcer. She has been treated and is here for followup upper endoscopy at six weeks. She says the abdominal discomfort of which she was complaining prior has improved significantly. I counseled her for upper endoscopy with possible biopsy including risks and alternatives, and she gave her informed consent to proceed. DESCRIPTION OF PROCEDURE: The patient was placed in the left lateral decubitus position. IV anesthesia was administered by the Anesthesia service. Time-out was held. The flexible video Olympus upper endoscope was passed through her mouth, down her esophagus, and into her stomach. The scope was easily passed through the pylorus into the duodenal reaching its third portion. The scope was then slowly withdrawn, examining the mucosa throughout. The duodenal mucosa appeared unremarkable. The scope was brought up through the pylorus. The ulcer was still present in the pre-pyloric area, but smaller. The scope was retroflexed, the proximal stomach appeared unremarkable. The scope was straightened. We obtained biopsies of the antrum with the ulcer for CLOtest and for pathology to look for Helicobacter pylori. The scope was then brought up through the GE junction which appeared unremarkable and through the unremarkable appearing esophagus and was removed. She tolerated the procedure well. Alireza Lee MD /[id number] MTDD
== END 2017-09-06 10:54 | disposition home or self-care (01) ==
LOC: JP.SDS 07:27
PROVIDERS: ATTEND Surgery
DX: K25.9 Gastric ulcer, unspecified as acute or chronic, without hemorrhage or perforation (principal); K21.9 Gastro-esophageal reflux disease without esophagitis; I10 Essential (primary) hypertension; Z98.890 Other specified postprocedural states; Z79.899 Other long term (current) drug therapy
CPT/HCPCS: 43239; 87081; 88305; J2704; J7120

== ENCOUNTER 2017-09-12 06:54 | Day surgery (SDC) | payer MEDICARE, BC ==
[~2017-09-12 06:54] MED LIST changes: +Bupivacaine 0.25%/EPINEPHrine 1:200,000 30 ML SDV ONE; -Lactated Ringers 1,000 ML IV SCH; +methylPREDNISolone Acetate 80 MG/ML SDV ONE
[2017-09-12] MEDS ORDERED: Lactated Ringers 1,000 ML IV SCH (07:30)
[2017-09-12] MEDS ORDERED: ceFAZolin 2 GM in Premix Bag 1 BAG IV ONE ×2 (07:30)
[2017-09-12] MEDS ORDERED: fentaNYL 250 MCG/5 ML SDV ONE (07:50)
[2017-09-12] MEDS ORDERED: Dexamethasone 4 MG/ML SDV ONE (07:50)
[2017-09-12] MEDS ORDERED: Rocuronium 50 MG/5 ML Vial ONE (07:50)
[2017-09-12] MEDS ORDERED: Ondansetron 4 MG/2 ML SDV ONE (07:50)
[2017-09-12] MEDS ORDERED: Neostigmine Methylsulfate 1 MG/ML 5 ML Syringe ONE (07:50)
[2017-09-12] MEDS ORDERED: Propofol 200 MG/20 ML SDV ONE (07:50)
[2017-09-12] MEDS ORDERED: hydrOXYzine HCl 100 MG/2 ML SDV IM ONE (09:45)
[2017-09-12 13:26] VITALS: BP 144/69
--- NOTE | 2017-09-12 16:26 | OR ---
DATE OF PROCEDURE: 09/12/2017 PREOPERATIVE DIAGNOSES: 1. Tear of the middle horn lateral meniscus, left knee. 2. Osteoarthritis grade 3, grade 4 medial compartment, patella, lateral plateau. 3. Osteoarthritic changes, grade 2, intercondylar notch. POSTOPERATIVE DIAGNOSES: 1. Tear of the middle horn lateral meniscus, left knee. 2. Osteoarthritis grade 3, grade 4 medial compartment, patella, lateral plateau. 3. Osteoarthritic changes, grade 2, intercondylar notch. INTERVENTIONS: Scope left knee, shaving medial horn and lateral meniscus, shaving to a stable chondral base, medial condyle, lateral plateau, and patella. ESTIMATED BLOOD LOSS: Minimal. COMPLICATION: None. INDICATIONS: Ligia is a healthy 77 years old. Since early summer or late last spring had been having some knee pain. No typical history of trauma. Started to have some sensation of instability, rotation mechanical pain. She had an MRI done which shows some edema of the medial tibial metaphysis, advanced arthritic changes, medial compartment, mostly patellofemoral joint with a tear of the lateral meniscus. We had discussed in detail at the clinic about the possible alternatives, decided initially to try knee scope in order to push the prosthesis as long as we can, and this is really what she wanted initially; knowing that there might be not any guarantee that she will have full relief. I discussed with the patient the possible risks, benefits, alternatives, and complications of surgery. The nature of the surgery was explained, all questions were answered, and I had informed consent. PROCEDURE IN DETAIL: The patient is brought to the OR. I did my markings on the left knee. She did receive antibiotics preop. The PARCEL WRAPPER proceeded with general anesthesia. The patient is put on her back and a tourniquet was applied to the left proximal quadriceps. Sterile prep and dressing were done in the usual manner at the left knee. Time-out was taken to identify the correct surgical site. The leg was elevated, tourniquet was raised to 250 mmHg. The knee was bent 90 degrees. An anterior lateral portal incision was done with the knee flexed to 90 degrees. A blunt probe was entered via the articulation, followed by irrigation and camera. She only had some synovial debris of the medial lateral gutters but no loose bodies. The intercondylar notch grade 2 arthritic changes. The patella mostly grade 3 or grade 4 diffusely with fraying of the cartilage mostly at the apex and the inferior pole. The medial compartment shows advanced arthritic changes grade 3 but mostly grade 4 at least covering 50% of the condyle and plateau but I did not find she had any significant degenerative tear or true tear of the meniscus. The ACL was normal. The lateral compartment mostly grade 2, grade 3 and grade 4 lateral plateau, grade 1 lateral condyle, and slight degenerative tear mostly at the middle horn of the lateral meniscus. An incision is done at the anterior medial portal after a blunt probe was entered with the shaver; shaved about 5% to 10% of the middle horn of the lateral meniscus; shaved to stable chondral space, medial condyle, lateral plateau, and patella and I did shave some of the debris of the medial lateral gutters. Once the surgery was done, the knee was washed with saline and dried. All instrumentation removed. The skin was closed with nylon 3-0 simple sutures. An injection of 8 mL of Marcaine, 80 mg of Depo- Medrol was done, and a sterile dressing is applied. Tourniquet was released. Blood loss was minimal. There was no complication. The patient tolerated well the operation. She was sent to the recovery room in good condition. Himanshu Zazueta MD /[id number]
== END 2017-09-12 13:52 | disposition home or self-care (01) ==
LOC: JP.SDS 06:54
PROVIDERS: ATTEND Orthopaedic Surgery
DX: M17.12 Unilateral primary osteoarthritis, left knee (principal); M23.262 Derangement of other lateral meniscus due to old tear or injury, left knee; I10 Essential (primary) hypertension; E78.5 Hyperlipidemia, unspecified; E11.9 Type 2 diabetes mellitus without complications; Z79.82 Long term (current) use of aspirin; Z79.899 Other long term (current) drug therapy; Z88.1 Allergy status to other antibiotic agents
CPT/HCPCS: 29881; J0690; J1040; J1100; J2405; J2704; J3010; J3410; J7120

== ENCOUNTER 2017-11-06 06:31 | Day surgery (SDC) | payer MEDICARE, BC ==
[2017-11-06] MEDS ORDERED: Lactated Ringers 1,000 ML IV SCH (06:45)
[2017-11-06] MEDS ORDERED: fentaNYL 100 MCG/2 ML SDV ONE (07:24)
[2017-11-06] MEDS ORDERED: Propofol 200 MG/20 ML SDV ONE (07:24)
[2017-11-06] MEDS ORDERED: Midazolam 1 MG/ML 2 ML SDV ONE (07:24)
[2017-11-06 09:28] VITALS: BP 150/95
--- NOTE | 2017-11-06 09:52 | OR ---
DATE OF PROCEDURE: 11/06/2017 PREOPERATIVE DIAGNOSIS: History of pre-pyloric ulcer. POSTOPERATIVE DIAGNOSIS: Healed pre-pyloric ulcer. PROCEDURES: Esophagogastroduodenoscopy with antral biopsies for CLOtest and for pathology to look for Helicobacter pylori. ANESTHESIA: IV anesthesia with monitored anesthesia care. INDICATION: This 77-year-old white female who, last year, was found to have a pre-pyloric ulcer. About 6 weeks later, she underwent a repeat upper endoscopy after being treated and the ulcer was still there. This was in August. She is now here for followup upper endoscopy to see if the ulcer has healed. I counseled her for upper endoscopy, including the risks and alternatives, and she gave her informed consent to proceed. DESCRIPTION OF PROCEDURE: The patient was placed in the left lateral decubitus position. IV anesthesia was administered by the Anesthesia Service. Time-out was held. The flexible video Olympus upper endoscope was passed through her mouth, down her esophagus, and into her stomach. The scope was easily passed through the pylorus, into the duodenum, and reaching its third portion. The scope was then slowly withdrawn, examining the mucosa throughout. The duodenal mucosa appeared unremarkable. The scope was brought up through the pylorus. The ulcer appeared healed. There was still intense erythema at the site of the prior ulcer. We obtained biopsies of this area, again, to check for Helicobacter pylori and for a CLOtest. The scope was retroflexed. The proximal stomach appeared unremarkable. The scope was straightened and brought up to the GE junction. This appeared unremarkable. The scope was then brought up through the unremarkable-appearing esophagus and was removed. She tolerated the procedure well. Alireza Lee MD /[id number]
== END 2017-11-06 09:55 | disposition home or self-care (01) ==
LOC: JP.SDS 06:31
PROVIDERS: ATTEND Surgery
DX: K31.89 Other diseases of stomach and duodenum (principal); I10 Essential (primary) hypertension; E11.9 Type 2 diabetes mellitus without complications; Z88.1 Allergy status to other antibiotic agents; Z88.8 Allergy status to other drugs, medicaments and biological substances
CPT/HCPCS: 43239; 87081; 88305; J2250; J2704; J3010; J7120

== ENCOUNTER 2022-01-19 13:06 | Inpatient (IN) | payer MEDICARE ==
[2022-01-19] MEDS ORDERED: Iopamidol 612 MG/ML 100 ML Bottle IV PRN ×2 (14:22→14:25)
[2022-01-19] MEDS ORDERED: Sodium Chloride 0.9% 10 ML Syringe FLUSH PRN (14:25)
[2022-01-19] MEDS ORDERED: Sodium Chloride 0.9% 50 ML IV ONE (14:25)
[2022-01-19] MEDS ORDERED: Sodium Chloride 0.9% 50 ML IV SCH (14:30)
[2022-01-19] MEDS ORDERED: Lidocaine 2% Jelly 10 ML Urojet MUCMEM ONE (17:49)
[2022-01-19] MEDS ORDERED: Lidocaine 2% Jelly 10 ML Urojet ONE (17:50)
[2022-01-19 18:36] LABS: CORONAVIRUS COVID-19 NAA NEGATIVE (NEGATIVE)
[2022-01-19] MEDS ORDERED: Lactated Ringers 1,000 ML IV SCH (18:58)
[2022-01-19] MEDS ORDERED: LORazepam 2 MG/ML SDV IVPUSH PRN (18:58)
[2022-01-19] MEDS ORDERED: Ondansetron 4 MG Tab.DIS PO PRN (18:58)
[2022-01-19] MEDS ORDERED: Acetaminophen 325 MG Tab PO PRN (18:58)
[2022-01-19] MEDS ORDERED: Magnesium Hydroxide 400 MG/5 ML Susp 30 ML Cup PO PRN (18:58)
[2022-01-19] MEDS ORDERED: Morphine 10 MG/ML Syringe ONE (19:05)
[2022-01-19] MEDS: Morphine 2 MG/ML SYRINGE IVPUSH PRN (21:24)
[2022-01-19] MEDS: atorvaSTATin 20 MG Tab PO SCH (21:27)
[2022-01-19] MEDS: Metoprolol Tartrate 25 MG Tab PO SCH (21:27)
[2022-01-19] MEDS: traZODone 50 MG Tab PO SCH (21:27)
[2022-01-19] MEDS: Pantoprazole 40 MG Vial IV SCH (21:30)
[2022-01-20] MEDS: Ondansetron 4 MG/2 ML SDV IV PRN ×2 (05:25→16:51)
[2022-01-20 05:43] LABS: ESTIMATED GFR 57 mL/min (>60)
[2022-01-20] MEDS: Lactated Ringers 1,000 ML IV SCH (08:18)
[2022-01-20] MEDS: Metoprolol Tartrate 25 MG Tab PO SCH ×2 (08:19→21:12)
[2022-01-20] MEDS: Lisinopril 10 MG Tab PO SCH (08:19)
[2022-01-20] MEDS ORDERED: cefOXitin 2 GM in Sodium Chloride 0.9% 50 ML IV ONE (11:00)
[2022-01-20] MEDS ORDERED: Promethazine 6.25 MG in Sodium Chloride 0.9% 50 ML IV PRN (11:37)
[2022-01-20] MEDS: Morphine 2 MG/ML SYRINGE IVPUSH PRN ×2 (12:50→16:59)
[2022-01-20] MEDS: Pantoprazole 40 MG Vial IV SCH (19:52)
[2022-01-20] MEDS: atorvaSTATin 20 MG Tab PO SCH (21:12)
[2022-01-20] MEDS: traZODone 50 MG Tab PO SCH (21:12)
[2022-01-21 05:05] LABS: ESTIMATED GFR 57 mL/min (>60)
[2022-01-21] MEDS ORDERED: Lidocaine 1% with EPINEPHrine 1:100,000 50 ML MDV ONE (06:59)
[2022-01-21] MEDS ORDERED: Bupivacaine 0.5% 50 ML MDV ONE (06:59)
[2022-01-21] MEDS ORDERED: Meropenem 500 MG SDV ONE (07:00)
[2022-01-21] MEDS: Metoprolol Tartrate 25 MG Tab PO SCH ×2 (08:09→20:45)
[2022-01-21] MEDS: Lisinopril 10 MG Tab PO SCH (08:12)
[2022-01-21] MEDS: Lactated Ringers 1,000 ML IV SCH (09:56)
[2022-01-21] MEDS ORDERED: Rocuronium 50 MG/5 ML Vial ONE (10:56)
[2022-01-21] MEDS ORDERED: Propofol 200 MG/20 ML SDV ONE (10:56)
[2022-01-21] MEDS ORDERED: Dexamethasone 4 MG/ML SDV ONE (10:56)
[2022-01-21] MEDS ORDERED: Glycopyrrolate 0.2 MG/ML 5 ML MDV ONE ×2 (10:56→15:39)
[2022-01-21] MEDS ORDERED: Ondansetron 4 MG/2 ML SDV ONE (10:56)
[2022-01-21] MEDS ORDERED: Neostigmine Methylsulfate 1 MG/ML 5 ML Syringe ONE ×2 (10:56→15:39)
[2022-01-21] MEDS ORDERED: Succinylcholine 200 MG/10 ML MDV ONE (10:56)
[2022-01-21] MEDS ORDERED: fentaNYL 250 MCG/5 ML SDV ONE (10:58)
[2022-01-21] MEDS ORDERED: Sodium Chloride 0.9% 10 ML ONE (10:58)
[2022-01-21] MEDS ORDERED: fentaNYL 100 MCG/2 ML SDV ONE (10:58)
[2022-01-21] MEDS ORDERED: cefOXitin 2 GM in Sodium Chloride 0.9% 50 ML IV ONE (11:00)
[2022-01-21] MEDS ORDERED: Naloxone 0.4 MG/ML SDV IVPUSH PRN (13:00)
[2022-01-21] MEDS: fentaNYL 2,500 MCG in Sodium Chloride 0.9% 200 ML EPIDUR SCH (16:54)
[2022-01-21] MEDS ORDERED: diphenhydrAMINE 50 MG/ML SDV IVPUSH PRN (17:00)
[2022-01-21] MEDS: Dextrose 5%-Lactated Ringers 1,000 ML IV SCH (17:27)
[2022-01-21] MEDS: Labetalol 20 MG/4 ML Syringe IVPUSH PRN (17:50)
[2022-01-21] MEDS: hydrOXYzine HCL 100 MG/2 ML SDV IM PRN (17:54)
[2022-01-21] MEDS ORDERED: Meperidine PF 50 MG/ML Syringe IM ONE (19:19)
[2022-01-21] MEDS: cefOXitin 2 GM in Sodium Chloride 0.9% 50 ML IV SCH (20:43)
[2022-01-21] MEDS: Pantoprazole 40 MG Vial IV SCH (20:44)
[2022-01-21] MEDS: atorvaSTATin 20 MG Tab PO SCH (20:45)
[2022-01-21] MEDS: Acetaminophen 325 MG Tab PO SCH (22:30)
[2022-01-22] MEDS: Dextrose 5%-Lactated Ringers 1,000 ML IV SCH ×4 (00:09→21:49)
[2022-01-22] MEDS: cefOXitin 2 GM in Sodium Chloride 0.9% 50 ML IV SCH ×4 (02:41→20:06)
[2022-01-22] MEDS: Ondansetron 4 MG/2 ML SDV IVPUSH PRN ×2 (04:07→21:00)
[2022-01-22] MEDS: Acetaminophen 325 MG Tab PO SCH ×4 (04:11→21:10)
[2022-01-22] MEDS ORDERED: Lactated Ringers 500 ML IV SCH (04:45)
[2022-01-22 05:01] LABS: ESTIMATED GFR 38 mL/min (>60)
[2022-01-22] MEDS: Metoprolol Tartrate 25 MG Tab PO SCH (09:14)
[2022-01-22] MEDS: Lisinopril 10 MG Tab PO SCH (09:15)
[2022-01-22] MEDS: fentaNYL 2,500 MCG in Sodium Chloride 0.9% 200 ML EPIDUR SCH (15:00)
[2022-01-22] MEDS: Pantoprazole 40 MG Vial IV SCH (20:07)
[2022-01-22] MEDS: atorvaSTATin 20 MG Tab PO SCH (21:10)
[2022-01-22] MEDS ORDERED: Naloxone 0.4 MG/ML SDV IVPUSH PRN (21:40)
[2022-01-22] MEDS: Naloxone 0.4 MG/ML SDV IV PRN (21:48)
[2022-01-23] MEDS: Metoprolol Tartrate 25 MG Tab PO SCH ×3 (00:22→20:47)
[2022-01-23] MEDS: cefOXitin 2 GM in Sodium Chloride 0.9% 50 ML IV SCH ×3 (03:11→13:32)
[2022-01-23] MEDS: Acetaminophen 325 MG Tab PO SCH ×4 (03:13→21:18)
[2022-01-23] MEDS: Dextrose 5%-Lactated Ringers 1,000 ML IV SCH (05:03)
[2022-01-23] MEDS: Naloxone 0.4 MG/ML SDV IV PRN ×2 (05:03→19:50)
[2022-01-23 05:08] LABS: ESTIMATED GFR 46 mL/min (>60)
[2022-01-23] MEDS ORDERED: Ropivacaine 35 ML, dexAMETHasone 8 MG, EPINEPHrine 0.4 MG, Sodium Chloride 0.9% 42.6 ML NERVRT SCH ×4 (08:00)
[2022-01-23] MEDS: Metoclopramide 10 MG/2 ML SDV IVPUSH SCH ×3 (08:17→19:43)
[2022-01-23] MEDS: Lisinopril 10 MG Tab PO SCH (10:21)
[2022-01-23] MEDS: fentaNYL 2,500 MCG in Sodium Chloride 0.9% 200 ML EPIDUR SCH (16:01)
[2022-01-23] MEDS: Pantoprazole 40 MG Vial IV SCH (19:42)
[2022-01-23] MEDS: atorvaSTATin 20 MG Tab PO SCH (20:47)
[2022-01-24] MEDS: Metoclopramide 10 MG/2 ML SDV IVPUSH SCH ×4 (01:36→20:24)
[2022-01-24] MEDS: Acetaminophen 325 MG Tab PO SCH ×4 (03:05→21:41)
[2022-01-24 05:00] LABS: ESTIMATED GFR 74 mL/min (>60)
[2022-01-24] MEDS: Dextrose 5%-Lactated Ringers 1,000 ML IV SCH ×2 (05:47→21:28)
[2022-01-24] MEDS ORDERED: Bupivacaine 0.5% 50 ML MDV ONE (06:47)
[2022-01-24] MEDS ORDERED: Lidocaine 1% with EPINEPHrine 1:100,000 50 ML MDV ONE (06:47)
[2022-01-24] MEDS ORDERED: Furosemide 40 MG/4 ML VIAL IVPUSH ONE (06:56)
[2022-01-24] MEDS ORDERED: Meropenem 500 MG SDV ONE (06:59)
[2022-01-24] MEDS ORDERED: Potassium Chloride 20 MEQ, Lidocaine 1% 2 ML in Sodium Chloride 0.9% 100 ML IV SCH (07:00)
[2022-01-24] MEDS ORDERED: Ropivacaine 35 ML, dexAMETHasone 8 MG, EPINEPHrine 0.4 MG, Sodium Chloride 0.9% 42.6 ML NERVRT SCH ×4 (07:15)
[2022-01-24] MEDS: Lisinopril 10 MG Tab PO SCH (08:02)
[2022-01-24] MEDS: Metoprolol Tartrate 25 MG Tab PO SCH ×2 (08:02→20:23)
[2022-01-24] MEDS: Ondansetron 4 MG/2 ML SDV IVPUSH PRN (08:52)
[2022-01-24] MEDS: WATER IV SCH ×3 (09:30→21:27)
[2022-01-24] MEDS: MAGNESIUM SULFATE IV SCH ×3 (09:30→21:27)
[2022-01-24] MEDS: Potassium Chloride 20 MEQ, Lidocaine 1% 2 ML in Sodium Chloride 0.9% 100 ML IV SCH ×3 (09:49→13:56)
[2022-01-24] MEDS ORDERED: Iopamidol 612 MG/ML 100 ML Bottle IV PRN (11:05)
[2022-01-24] MEDS ORDERED: Sodium Chloride 0.9% 10 ML Syringe FLUSH PRN (11:05)
[2022-01-24] MEDS ORDERED: Sodium Chloride 0.9% 50 ML IV ONE (11:05)
[2022-01-24] MEDS: Labetalol 20 MG/4 ML Syringe IVPUSH PRN ×2 (12:20→13:29)
[2022-01-24] MEDS: fentaNYL 2,500 MCG in Sodium Chloride 0.9% 200 ML EPIDUR SCH (15:13)
[2022-01-24] MEDS: Pantoprazole 40 MG Vial IV SCH (20:24)
[2022-01-24] MEDS: atorvaSTATin 20 MG Tab PO SCH (20:25)
[2022-01-24] MEDS ORDERED: Azithromycin 125 MG in Sodium Chloride 0.9% 150 ML IV SCH (21:00)
[2022-01-25] MEDS: Metoclopramide 10 MG/2 ML SDV IVPUSH SCH ×4 (02:58→19:40)
[2022-01-25] MEDS: MAGNESIUM SULFATE IV SCH ×4 (03:02→22:25)
[2022-01-25] MEDS: WATER IV SCH ×4 (03:02→22:25)
[2022-01-25] MEDS: Acetaminophen 325 MG Tab PO SCH ×4 (03:53→22:25)
[2022-01-25 05:00] LABS: ESTIMATED GFR 74 mL/min (>60)
[2022-01-25] MEDS: Dextrose 5%-Lactated Ringers 1,000 ML IV SCH ×2 (05:58→15:13)
[2022-01-25] MEDS ORDERED: Bupivacaine 0.5% 50 ML MDV ONE (06:44)
[2022-01-25] MEDS ORDERED: Meropenem 500 MG SDV ONE (06:44)
[2022-01-25] MEDS ORDERED: Lidocaine 1% with EPINEPHrine 1:100,000 50 ML MDV ONE (06:44)
[2022-01-25] MEDS ORDERED: Propofol 200 MG/20 ML SDV ONE (07:00)
[2022-01-25] MEDS ORDERED: Ropivacaine 35 ML, dexAMETHasone 8 MG, EPINEPHrine 0.4 MG, Sodium Chloride 0.9% 42.6 ML NERVRT SCH ×4 (07:15)
[2022-01-25] MEDS: Furosemide 20 MG/2 ML VIAL IVPUSH SCH ×2 (09:44→15:15)
[2022-01-25] MEDS: Lisinopril 10 MG Tab PO SCH (09:45)
[2022-01-25] MEDS: Metoprolol Tartrate 25 MG Tab PO SCH ×2 (09:45→20:11)
[2022-01-25] MEDS: Celecoxib 200 MG Cap PO SCH ×2 (09:46→20:11)
[2022-01-25] MEDS: traMADol 50 MG Tab PO PRN (10:55)
[2022-01-25] MEDS: hydrOXYzine HCL 100 MG/2 ML SDV IM PRN (11:51)
[2022-01-25] MEDS: Pantoprazole 40 MG Vial IV SCH (19:40)
[2022-01-25] MEDS: atorvaSTATin 20 MG Tab PO SCH (20:11)
[2022-01-26] MEDS: Dextrose 5%-Lactated Ringers 1,000 ML IV SCH ×2 (01:04→22:27)
[2022-01-26] MEDS: Metoclopramide 10 MG/2 ML SDV IVPUSH SCH ×4 (01:26→20:34)
[2022-01-26] MEDS: Acetaminophen 325 MG Tab PO SCH ×4 (03:16→21:04)
[2022-01-26] MEDS: MAGNESIUM SULFATE IV SCH ×4 (03:17→21:03)
[2022-01-26] MEDS: WATER IV SCH ×4 (03:17→21:03)
[2022-01-26 05:26] LABS: ESTIMATED GFR 57 mL/min (>60)
[2022-01-26] MEDS: hydrOXYzine HCL 100 MG/2 ML SDV IM PRN (06:24)
[2022-01-26] MEDS: Celecoxib 200 MG Cap PO SCH ×2 (08:02→20:35)
[2022-01-26] MEDS: Metoprolol Tartrate 25 MG Tab PO SCH ×2 (08:02→20:35)
[2022-01-26] MEDS: Lisinopril 10 MG Tab PO SCH (08:02)
[2022-01-26] MEDS: Furosemide 20 MG/2 ML VIAL IVPUSH SCH ×2 (08:11→14:02)
[2022-01-26] MEDS: hydrOXYzine HCl 25 MG Tab PO PRN ×2 (09:01→14:04)
[2022-01-26] MEDS: Pantoprazole 40 MG Tab.CR PO SCH (20:35)
[2022-01-26] MEDS: atorvaSTATin 20 MG Tab PO SCH (20:37)
[2022-01-27] MEDS: Metoclopramide 10 MG/2 ML SDV IVPUSH SCH ×4 (02:25→20:39)
[2022-01-27] MEDS: hydrOXYzine HCl 25 MG Tab PO PRN ×3 (04:09→23:37)
[2022-01-27] MEDS: Acetaminophen 325 MG Tab PO SCH ×4 (04:09→22:10)
[2022-01-27] MEDS: WATER IV SCH (04:10)
[2022-01-27] MEDS: MAGNESIUM SULFATE IV SCH (04:10)
[2022-01-27 04:54] LABS: ESTIMATED GFR 65 mL/min (>60)
[2022-01-27] MEDS: Furosemide 20 MG/2 ML VIAL IVPUSH SCH ×2 (08:58→15:18)
[2022-01-27] MEDS: Potassium Chloride 20 MEQ Tab.ER PO SCH ×3 (08:59→20:45)
[2022-01-27] MEDS: Celecoxib 200 MG Cap PO SCH ×2 (08:59→20:41)
[2022-01-27] MEDS: Lisinopril 10 MG Tab PO SCH (08:59)
[2022-01-27] MEDS: Metoprolol Tartrate 25 MG Tab PO SCH ×2 (09:00→20:41)
[2022-01-27] MEDS: traMADol 50 MG Tab PO PRN ×2 (11:12→23:37)
[2022-01-27] MEDS: hydrOXYzine HCL 100 MG/2 ML SDV IM PRN (16:30)
[2022-01-27] MEDS: atorvaSTATin 20 MG Tab PO SCH (20:41)
[2022-01-27] MEDS: Pantoprazole 40 MG Tab.CR PO SCH (20:41)
[2022-01-28] MEDS: Metoclopramide 10 MG/2 ML SDV IVPUSH SCH (02:30)
[2022-01-28] MEDS: Acetaminophen 325 MG Tab PO SCH ×4 (04:18→21:59)
[2022-01-28 05:11] LABS: ESTIMATED GFR 65 mL/min (>60)
[2022-01-28] MEDS ORDERED: Potassium Phosphates 60 MMOLE in Sodium Chloride 0.9% 250 ML IV SCH (06:45)
[2022-01-28] MEDS ORDERED: Metoclopramide 10 MG/2 ML SDV IVPUSH PRN (06:45)
[2022-01-28] MEDS: Loperamide 2 MG Cap PO PRN ×3 (07:21→17:27)
[2022-01-28] MEDS: traMADol 50 MG Tab PO PRN ×2 (07:21→12:35)
[2022-01-28] MEDS: hydrOXYzine HCl 25 MG Tab PO PRN ×3 (07:21→17:27)
[2022-01-28] MEDS: Lisinopril 10 MG Tab PO SCH (07:59)
[2022-01-28] MEDS: Metoprolol Tartrate 25 MG Tab PO SCH ×2 (07:59→20:29)
[2022-01-28] MEDS: Celecoxib 200 MG Cap PO SCH ×2 (07:59→20:28)
[2022-01-28] MEDS: Furosemide 20 MG/2 ML VIAL IVPUSH SCH ×2 (08:01→20:26)
[2022-01-28] MEDS: Lactobacillus Rhamnosus GG (Probiotic) Cap PO SCH ×2 (08:01→20:28)
[2022-01-28] MEDS: Potassium Phos in 0.9 % NaCl 15 MMOL in Premix Bag 1 BAG IV SCH ×8 (08:04→18:17)
[2022-01-28] MEDS: atorvaSTATin 20 MG Tab PO SCH (20:28)
[2022-01-28] MEDS: Pantoprazole 40 MG Tab.CR PO SCH (20:28)
[2022-01-29] MEDS: traZODone 50 MG Tab PO PRN ×2 (00:09→22:41)
[2022-01-29] MEDS: hydrOXYzine HCl 25 MG Tab PO PRN ×2 (00:09→22:41)
[2022-01-29] MEDS: Acetaminophen 325 MG Tab PO SCH ×4 (03:42→22:42)
[2022-01-29 05:39] LABS: ESTIMATED GFR 57 mL/min (>60)
[2022-01-29] MEDS: Furosemide 20 MG/2 ML VIAL IVPUSH SCH ×2 (08:21→14:05)
[2022-01-29] MEDS: Potassium Chloride 20 MEQ Tab.ER PO SCH ×3 (08:21→20:16)
[2022-01-29] MEDS: Celecoxib 200 MG Cap PO SCH ×2 (08:21→20:16)
[2022-01-29] MEDS: Lactobacillus Rhamnosus GG (Probiotic) Cap PO SCH ×2 (08:21→20:14)
[2022-01-29] MEDS: Metoprolol Tartrate 25 MG Tab PO SCH ×2 (08:22→20:15)
[2022-01-29] MEDS: Lisinopril 10 MG Tab PO SCH (08:23)
[2022-01-29] MEDS: Loperamide 2 MG Cap PO PRN (20:11)
[2022-01-29] MEDS: atorvaSTATin 20 MG Tab PO SCH (20:14)
[2022-01-29] MEDS: Pantoprazole 40 MG Tab.CR PO SCH (20:15)
[2022-01-29] MEDS ORDERED: Trolamine Salicylate/Aloe Vera 10% Crm 85 GM Tube TOP PRN (21:35)
[2022-01-30] MEDS: traMADol 50 MG Tab PO PRN ×2 (01:38→21:56)
[2022-01-30] MEDS: Acetaminophen 325 MG Tab PO SCH ×4 (04:47→21:53)
[2022-01-30 05:14] LABS: ESTIMATED GFR 57 mL/min (>60)
[2022-01-30] MEDS ORDERED: Furosemide 20 MG Tab PO SCH (09:00)
[2022-01-30] MEDS: Metoprolol Tartrate 25 MG Tab PO SCH ×2 (09:26→21:52)
[2022-01-30] MEDS: Lactobacillus Rhamnosus GG (Probiotic) Cap PO SCH ×2 (09:26→21:53)
[2022-01-30] MEDS: Potassium Chloride 20 MEQ Tab.ER PO SCH ×3 (09:27→21:52)
[2022-01-30] MEDS: Magnesium Oxide 400 MG Tab PO SCH (09:27)
[2022-01-30] MEDS: Celecoxib 200 MG Cap PO SCH ×2 (09:27→21:53)
[2022-01-30] MEDS: Lisinopril 10 MG Tab PO SCH (09:28)
[2022-01-30] MEDS: atorvaSTATin 20 MG Tab PO SCH (21:52)
[2022-01-30] MEDS: Pantoprazole 40 MG Tab.CR PO SCH (21:52)
[2022-01-30] MEDS: traZODone 50 MG Tab PO PRN (21:56)
[2022-01-31] MEDS: Acetaminophen 325 MG Tab PO SCH ×4 (04:43→21:08)
[2022-01-31 05:16] LABS: ESTIMATED GFR 51 mL/min (>60)
[2022-01-31] MEDS ORDERED: Furosemide 20 MG/2 ML VIAL IVPUSH SCH (09:00)
[2022-01-31] MEDS: Magnesium Oxide 400 MG Tab PO SCH (09:02)
[2022-01-31] MEDS: Potassium Chloride 20 MEQ Tab.ER PO SCH ×3 (09:02→21:10)
[2022-01-31] MEDS: Metoprolol Tartrate 25 MG Tab PO SCH ×2 (09:02→21:09)
[2022-01-31] MEDS: Celecoxib 200 MG Cap PO SCH ×2 (09:03→21:10)
[2022-01-31] MEDS: Lactobacillus Rhamnosus GG (Probiotic) Cap PO SCH ×2 (09:03→21:10)
[2022-01-31] MEDS: Lisinopril 10 MG Tab PO SCH (09:06)
[2022-01-31] MEDS ORDERED: Furosemide 20 MG/2 ML VIAL IVPUSH ONE (14:00)
[2022-01-31] MEDS ORDERED: Dimethicone 20%/Zinc Oxide 25% 56 GM Spray Bottle TOP PRN (15:39)
[2022-01-31] MEDS: Pantoprazole 40 MG Tab.CR PO SCH (21:08)
[2022-01-31] MEDS: atorvaSTATin 20 MG Tab PO SCH (21:10)
[2022-02-01] MEDS: Acetaminophen 325 MG Tab PO SCH ×2 (03:59→09:00)
[2022-02-01 05:38] LABS: ESTIMATED GFR 46 mL/min (>60)
[2022-02-01] MEDS: hydrOXYzine HCl 25 MG Tab PO PRN (06:11)
[2022-02-01] MEDS: Celecoxib 200 MG Cap PO SCH (08:04)
[2022-02-01] MEDS: Lactobacillus Rhamnosus GG (Probiotic) Cap PO SCH (08:05)
[2022-02-01] MEDS: Potassium Chloride 20 MEQ Tab.ER PO SCH (08:05)
[2022-02-01] MEDS: Metoprolol Tartrate 25 MG Tab PO SCH (08:06)
[2022-02-01] MEDS: Magnesium Oxide 400 MG Tab PO SCH (08:07)
[2022-02-01] MEDS: Lisinopril 10 MG Tab PO SCH (08:07)
[2022-02-01 10:20] VITALS: BP 121/41; PULSE 58
== END 2022-02-01 11:30 | disposition home health service (06) | DRG 330 ==
LOC: JP.ED 13:06 → JP.ICU 17:15 → JP.MS 01-23 15:18
PROVIDERS: ADMIT Internal Medicine; ATTEND Surgery
PROC: 0DTF0ZZ Resection of Right Large Intestine, Open Approach (ICD-10-PCS; principal; 2022-01-21)
PROC: 0FT40ZZ Resection of Gallbladder, Open Approach (ICD-10-PCS; 2022-01-21)
PROC: 0FB00ZZ Excision of Liver, Open Approach (ICD-10-PCS; 2022-01-21)
PROC: 0WQF0ZZ Repair Abdominal Wall, Open Approach (ICD-10-PCS; 2022-01-21)
PROC: 0DB80ZZ Excision of Small Intestine, Open Approach (ICD-10-PCS; 2022-01-21)
PROC: 0UT20ZZ Resection of Bilateral Ovaries, Open Approach (ICD-10-PCS; 2022-01-21)
PROC: 0UT70ZZ Resection of Bilateral Fallopian Tubes, Open Approach (ICD-10-PCS; 2022-01-21)
PROC: 0WQF0ZZ Repair Abdominal Wall, Open Approach (ICD-10-PCS; 2022-01-25)
DX: K56.699 Other intestinal obstruction unspecified as to partial versus complete obstruction (principal); K63.9 Disease of intestine, unspecified; K63.89 Other specified diseases of intestine; K42.0 Umbilical hernia with obstruction, without gangrene; K21.9 Gastro-esophageal reflux disease without esophagitis; K55.9 Vascular disorder of intestine, unspecified; K82.8 Other specified diseases of gallbladder; Z87.11 Personal history of peptic ulcer disease; E11.9 Type 2 diabetes mellitus without complications; Z20.822 Contact with and (suspected) exposure to COVID-19; I10 Essential (primary) hypertension; E78.00 Pure hypercholesterolemia, unspecified; E66.9 Obesity, unspecified; M19.90 Unspecified osteoarthritis, unspecified site; Z88.0 Allergy status to penicillin; Z88.1 Allergy status to other antibiotic agents; Z88.8 Allergy status to other drugs, medicaments and biological substances; Z79.899 Other long term (current) drug therapy; Z68.25 Body mass index [BMI] 25.0-25.9, adult
CPT/HCPCS: 0241U; 36415; 43752; 71045; 74019; 74177; 80048; 80053; 82378; 83690; 83735; 83880; 84100; 85025; 85027; 86618; 87493; 88112; 88302; 88304; 88305; 88307; 88309; 88341; 88342; 93005; 94762; 97110; 97116; 97162; 97530; 97535; 99222; 99232; 99284; 99285; A9270-GY; C9113; J0171; J0330; J0694; J1100; J1940; J2020; J2060; J2175; J2185; J2270; J2310; J2405; J2704; J2710; J2765; J2795; J3010; J3410; J3475; J3480; J3490; J7050; J7120; J7121; Q9967

== ENCOUNTER 2022-02-01 17:10 | Emergency (ER) | payer MEDICARE ==
[2022-02-01 17:15] VITALS: BP 123/37; PULSE 73
[2022-02-01 18:21] LABS: ESTIMATED GFR 51 mL/min (>60)
== END 2022-02-01 18:56 | disposition home or self-care (01) ==
LOC: JP.ED 17:10
DX: R41.82 Altered mental status, unspecified (principal); R10.84 Generalized abdominal pain; R11.0 Nausea; I10 Essential (primary) hypertension; E78.00 Pure hypercholesterolemia, unspecified; E11.9 Type 2 diabetes mellitus without complications; E66.9 Obesity, unspecified; K21.9 Gastro-esophageal reflux disease without esophagitis; Z88.1 Allergy status to other antibiotic agents; Z79.899 Other long term (current) drug therapy; Z87.891 Personal history of nicotine dependence; Z68.26 Body mass index [BMI] 26.0-26.9, adult
CPT/HCPCS: 36415; 80048; 85025; 99282; 99284

== ENCOUNTER 2023-02-02 15:07 | Emergency (ER) | payer MEDICARE ==
[2023-02-02] MEDS ORDERED: Bacitracin Oint 1 GM U/D Packet TOP ONE (16:23)
[2023-02-02] MEDS ORDERED: Lidocaine 1% with EPINEPHrine 1:100,000 50 ML MDV SUBCUT STA (16:23)
[2023-02-02 16:24] VITALS: BP 187/71; PULSE 67
== END 2023-02-02 17:40 | disposition home or self-care (01) ==
LOC: JP.ED 15:07
DX: S02.2XXA Fracture of nasal bones, initial encounter for closed fracture (principal); S01.21XA Laceration without foreign body of nose, initial encounter; S49.91XA Unspecified injury of right shoulder and upper arm, initial encounter; Z88.0 Allergy status to penicillin; Z88.1 Allergy status to other antibiotic agents; W18.09XA Striking against other object with subsequent fall, initial encounter
CPT/HCPCS: 12011; 70450; 70450-26; 70486; 70486-26; 73030-26-RT; 73030-RT; 99284

== ENCOUNTER 2023-03-07 07:19 | Day surgery (SDC) | payer MEDICARE ==
[~2023-03-07 07:19] MED LIST changes: -Bupivacaine 0.25%/EPINEPHrine 1:200,000 30 ML SDV ONE; +Propofol 200 MG/20 ML SDV ONE; +fentaNYL 50 MCG/ML SDV ONE; -methylPREDNISolone Acetate 80 MG/ML SDV ONE
[2023-03-07] MEDS ORDERED: Metoprolol Tartrate 25 MG Tab PO ONE (07:45)
[2023-03-07] MEDS ORDERED: Dextrose 5%-Lactated Ringers 1,000 ML IV SCH (08:00)
[2023-03-07 10:38] VITALS: BP 137/42; PULSE 56
== END 2023-03-07 10:47 | disposition home or self-care (01) ==
LOC: JP.SDS 07:19
PROVIDERS: ATTEND Surgery
DX: Z12.11 Encounter for screening for malignant neoplasm of colon (principal); I10 Essential (primary) hypertension; Z85.038 Personal history of other malignant neoplasm of large intestine
CPT/HCPCS: A9270; G0105; J2704; J3010; J7121

== ENCOUNTER 2025-03-31 06:28 | Day surgery (SDC) | payer MEDICARE ==
[2025-03-31 06:58] LABS: PLATELET COUNT,PLT 249.0 K/uL (130-375); RED BLOOD CELL COUNT 4.47 M/uL (3.77-5.24); WHITE BLOOD CELL COUNT,WBC 6.9 K/uL (3.2-11.0)
[2025-03-31] MEDS ORDERED: fentaNYL 100 MCG/2 ML SDV ONE (07:09)
[2025-03-31] MEDS ORDERED: Propofol 200 MG/20 ML SDV ONE (07:09)
[2025-03-31] MEDS: Nozin Nasal Sanitizer NASBOTH ONE (07:10)
[2025-03-31 07:13] LABS: BLOOD UREA NITROGEN,BUN 19 mg/dL (7-18); CARBON DIOXIDE,CO2 30 mmol/L (21-32); CHLORIDE,CL 102 mmol/L (100-108); CREATININE 1.3 mg/dL (0.6-1.0); ESTIMATED GFR 41 mL/min (>60); GLUCOSE RANDOM 103 mg/dL (74-106); POTASSIUM,K 4.0 mmol/L (3.6-5.2); SODIUM,NA 141 mmol/L (140-148)
[2025-03-31] MEDS: Lactated Ringers 1,000 ML IV SCH (07:26)
[2025-03-31 10:40] VITALS: BP 163/49; PULSE 55
== END 2025-03-31 10:15 | disposition home or self-care (01) ==
LOC: JP.SDS 06:28
PROVIDERS: ATTEND Specialist
DX: M65.331 Trigger finger, right middle finger (principal); I12.9 Hypertensive chronic kidney disease with stage 1 through stage 4 chronic kidney disease, or unspecified chronic kidney disease; E11.22 Type 2 diabetes mellitus with diabetic chronic kidney disease; N18.9 Chronic kidney disease, unspecified; Z88.8 Allergy status to other drugs, medicaments and biological substances
CPT/HCPCS: 26055; 36415; 80048; 85027; 93005; A9270; J0665; J0690; J2704; J3010; J7120; 93010

== ENCOUNTER 2025-06-19 07:07 | Day surgery (SDC) | payer MEDICARE ==
[2025-06-19] MEDS: Sodium Chloride 0.9% 10 ML Syringe FLUSH PRN (07:52)
[2025-06-19 09:12] VITALS: BP 172/63; PULSE 52
== END 2025-06-19 09:19 | disposition home or self-care (01) ==
LOC: JP.SDS 07:07
PROVIDERS: ATTEND Ophthalmology
DX: E11.36 Type 2 diabetes mellitus with diabetic cataract (principal); H25.11 Age-related nuclear cataract, right eye; E78.00 Pure hypercholesterolemia, unspecified; I10 Essential (primary) hypertension; Z88.1 Allergy status to other antibiotic agents; Z88.5 Allergy status to narcotic agent; Z88.8 Allergy status to other drugs, medicaments and biological substances; Z79.899 Other long term (current) drug therapy
CPT/HCPCS: V2632

== ENCOUNTER 2025-07-17 07:37 | Day surgery (SDC) | payer MEDICARE ==
[2025-07-17] MEDS: Sodium Chloride 0.9% 10 ML Syringe FLUSH PRN (08:21)
[2025-07-17 08:57] VITALS: BP 188/67; PULSE 58
== END 2025-07-17 09:20 | disposition home or self-care (01) ==
LOC: JP.SDS 07:37
PROVIDERS: ATTEND Ophthalmology
DX: E11.36 Type 2 diabetes mellitus with diabetic cataract (principal); H25.12 Age-related nuclear cataract, left eye; E78.00 Pure hypercholesterolemia, unspecified; I10 Essential (primary) hypertension; Z88.8 Allergy status to other drugs, medicaments and biological substances; Z88.5 Allergy status to narcotic agent; Z87.891 Personal history of nicotine dependence; Z79.899 Other long term (current) drug therapy
CPT/HCPCS: V2632